=== PATIENT | female | born 1990 ===

== ENCOUNTER 2024-08-24 22:18 | Emergency (ER) | payer OTHER, SELFPAY ==
[2024-08-24 22:21] VITALS: BP 118/71; PULSE 81; RESP 18; TEMP 36.8; O2SAT 100; BMI 37.0
[2024-08-24 23:24] LABS: Influenza A - CEPHEID Flu A NEGATIVE (NEGATIVE); Influenza B - CEPHEID Flu B NEGATIVE (NEGATIVE); Respiratory Syncytial Virus Negative (Negative)
[2024-08-24 23:37] LABS: COVID-19 CEPHEID 4-PLEX PCR Negative (Negative)
--- NOTE | 2024-08-24 23:48 | ED.URI ---
HPI - URI/Sore Throat General Chief Complaint: Upper Respiratory Symptoms Stated Complaint: Sob, sore throat migranes Time Seen by Provider: 08/24/24 23:47 Source: patient Mode of arrival: Ambulatory History of Present Illness HPI Narrative: 33-year-old female with dry cough and sore throat and laryngitis since earlier today. She also has bitemporal headache. She has not tried any medications for her pain symptoms. No known exposure to persons with similar symptoms. No nausea or vomiting. No abdominal discomfort. No painful or frequent urination. No chest pain or shortness of breath. Related Data Allergies Allergy/AdvReac Type Severity Reaction Status Date / Time Sulfa (Sulfonamide Allergy Intermediate Rash Verified 08/24/24 22:22 Antibiotics) Patient History Social History Smoking Status: Never smoker Smoking Status: Never smoker Exam Narrative Exam Narrative: GENERAL: Well-developed patient, in mild distress. HEAD: Atraumatic. Normocephalic. EYES: Pupils equal round and reactive. Extraocular motions intact. No scleral icterus. No injection or drainage. ENT: Nose without bleeding, purulent drainage. Throat without erythema, tonsillar hypertrophy or exudate. Airway patent. NECK: Trachea midline. Non tender CARDIOVASCULAR: Regular rate and rhythm without murmurs, gallops, or rubs. RESPIRATORY: Clear to auscultation. Breath sounds equal bilaterally. No wheezes, rales, or rhonchi. GASTROINTESTINAL: Abdomen soft, non-tender, nondistended. EXTREMITIES: No edema or joint tenderness. BACK: Nontender without deformity or crepitance. No flank tenderness. NEURO: AOx3. Motor functions grossly nonfocal SKIN: No rash or erythema of visible areas Initial Vital Signs Initial Vital Signs: Vital Signs Temperature 98.3 F 08/24/24 22:21 Pulse Rate 81 08/24/24 22:21 Respiratory Rate 18 08/24/24 22:21 Blood Pressure 118/71 08/24/24 22:21 Pulse Oximetry 100 08/24/24 22:21 Oxygen Delivery Method Room Air 08/24/24 22:21 Course Orders Ordered: ED Orders 08/24/24 22:36 Covid-19 + FLU A/B + RSV - PCR Stat Discontinued Medications Albuterol (Albuterol Hfa Prepack) 1 box MISC DIRECTED ONE Stop: 08/25/24 00:21 Last Admin: 08/25/24 00:23 Dose: 1 box Documented By: AZUL Ibuprofen (Ibuprofen 400 Mg Tablet) 400 mg PO NOW ONE Stop: 08/24/24 23:55 Last Admin: 08/25/24 00:13 Dose: 400 mg Documented By: AZUL Vital Signs Vital signs: Vital Signs - 8 hr 08/24/24 22:21 08/25/24 00:36 Temperature 98.3 F Pulse Rate 81 85 Respiratory Rate 18 17 Blood Pressure 118/71 117/68 Pulse Oximetry 100 96 Oxygen Delivery Method Room Air Room Air MDM - URI/Sore Throat Lab Data Labs: Lab Results 08/24/24 Range/Units 22:36 SARS-CoV-2 (PCR) Negative (Negative) Influenza A (RT-PCR) Flu a negative (NEGATIVE) Influenza B (RT-PCR) Flu b negative (NEGATIVE) RSV (PCR) Negative (Negative) MDM Narrative Medical decision making narrative: 33-year-old female with cough and laryngitis and sore throat since earlier today. Afebrile, sirs screen negative. No respiratory distress. Oropharyngeal exam unremarkable. COVID flu RSV swab negative. Ibuprofen dose given. Advised home symptomatic treatment, likely viral illness. We discussed antipyretics, analgesics, hydration. Discharged home. Return precautions discussed. Discharge Plan Departure Patient Disposition: Home Clinical Impression: Laryngitis, Acute upper respiratory infection, Headache Activity Restrictions/Additional Instructions: Cough symptoms with loss of voice laryngitis, suspicious for viral infection. Lungs clear, no oxygen requirement, no crackles or wheezes heard. Oropharyngeal exam without redness or exudates or lesions. Soft voice consistent with laryngitis noted. Swab was sent for COVID and influenza A and influenza B and RSV, which were all negative. Normal vitals. You also had bitemporal headache, had not taken any Tylenol or Motrin earlier today. Oral Motrin dose was given. Viral illness symptoms usually are self-limited, treatment is supportive, encouraged oral hydration. Encouraged use of [id number] Tylenol and or Motrin as needed for pain and fever symptoms. Recheck with your regular doctor if not improved in the next couple of days. Return to this/nearest emergency department for any change worsening symptoms or any concerns prior. Stand Alone Forms: Patient Portal/API, Work Release Note
[2024-08-25] MEDS: IBUPROFEN 400 MG TABLET PO (00:13)
[2024-08-25] MEDS: ALBUTEROL HFA PREPACK 1 BOX MISC (00:23)
[2024-08-25 00:36] VITALS: BP 117/68; PULSE 85; RESP 17; O2SAT 96
== END 2024-08-25 00:39 | disposition home or self-care (01) ==
PROVIDERS: Emergency Provider Emergency Medicine
DX: J06.9 Acute upper respiratory infection, unspecified (principal); R51.9 Headache, unspecified; J04.0 Acute laryngitis
CPT/HCPCS: 0241U; 99283